=== PATIENT | male | born 1960 | race Caucasian/White ===

== ENCOUNTER 2019-05-10 10:58 | Outpatient (CLI) | payer MEDICARE, SELFPAY | END 2019-05-10 10:59 | disposition home or self-care (01) | LOC: ANHLAB 11:05 | PROVIDERS: PCP Internal Medicine; Visit Provider Internal Medicine Gastroenterology | DX: R19.7 Diarrhea, unspecified (principal) | CPT/HCPCS: 87045; 87046; 87427; 89055 ==

== ENCOUNTER 2019-05-14 07:45 | Outpatient (CLI) | payer MEDICARE, SELFPAY ==
--- NOTE | ~2019-05-14 | XR_ITS ---
XR UGIAC w small bowel DATE: 05/14/2019 09:52 INDICATION: Chronic diarrhea TECHNIQUE: Air-contrast upper gastrointestinal series. Small bowel follow-through DAP: 37.696 2.1 minutes fluoroscopy time COMPARISON: None FINDINGS: Status post sternotomy/coronary artery bypass graft surgery. Normal deglutition and esophageal peristalsis. No stricture, mucosal fold thickening, erosion, ulcera tion or intraluminal mass lesion of the esophagus, stomach or duodenum is evident. There is normal tr ansit of contrast material through the small bowel, without evidence of obstruction. No mucosal fold thickening, stricture, abnormal dilatation, ulceration, intraluminal mass lesion or diverticulum is e vident. Spot images of the terminal ileum reveal no abnormality. IMPRESSION: No significant abnormality of the esophagus, stomach or small bowel Reviewed, dictated and finalized at [facility]. Reviewed, dictated and finalized at location [facility].
== END 2019-05-14 07:46 | disposition home or self-care (01) ==
LOC: ANHIMG 07:50
PROVIDERS: PCP Internal Medicine; Visit Provider Internal Medicine Gastroenterology
DX: R19.7 Diarrhea, unspecified (principal)
CPT/HCPCS: 74246; 74248

== ENCOUNTER 2020-02-09 07:59 | Outpatient (CLI) | payer MEDICARE, SELFPAY ==
--- NOTE | ~2020-02-09 | XR_ITS ---
EXAMINATION: XR UGIAC w small bowel DATE: 02/09/2020 10:05 INDICATION: 2 years of chronic diarrhea TECHNIQUE: The patient drank thick barium, gas-producing crystals, and thin barium. Conventional supi ne abdomen radiographs and fluoroscopic spot radiographs of the esophagus, stomach, and proximal smal l bowel were obtained. Additional overhead radiographs were obtained during the transit through the s mall bowel. Spot fluoroscopic images of the small bowel were obtained upon contrast reaching the cec um. A total of 609 fluoroscopic images 5 overhead radiographs were obtained. Fluoroscopy exposure jennifer e was 1.7 minutes. COMPARISON: 05/14/2019 FINDINGS: The esophagus is normal without mass or stricture. Esophageal motility is normal. There is no hiatal hernia. There was no gastroesophageal reflux with provocative maneuvers. The stomach and proximal sma ll bowel are normal. Median sternotomy wires and mediastinal surgical clips are seen, likely from isaias or coronary artery bypass grafting. Transit time from the stomach to proximal colon was approximately 45 minutes. There is normal caliber and mucosal fold pattern throughout the small bowel. Terminal ileum is normal. No tethering or abn ormal mass effect observed upon the small bowel with real-time fluoroscopy. IMPRESSION: 1. Normal upper GI and small bowel follow-through. Reviewed, dictated and finalized at location [facility]. 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
== END 2020-02-09 08:00 | disposition home or self-care (01) ==
PROVIDERS: PCP Internal Medicine; Visit Provider Internal Medicine Gastroenterology
DX: R19.7 Diarrhea, unspecified (principal)
CPT/HCPCS: 74246; 74248

== ENCOUNTER 2020-07-13 07:35 | Outpatient (CLI) | payer MEDICARE, SELFPAY ==
--- NOTE | ~2020-07-13 | US_ITS ---
EXAMINATION: US aorta DATE: 07/13/2020 08:34 INDICATION: Abdominal aortic aneurysm TECHNIQUE: Grayscale, color Doppler, and pulsed Doppler images of the aorta and common iliac arteries were obtained. COMPARISON: None. FINDINGS: The proximal aorta measures 2.8 cm AP diameter. The mid aorta measures 2.4 cm. Fusiform infrarenal ab dominal aortic aneurysm in the distal aorta which measures 4.4 x 4.3 cm in maximal diameter before ta pering to 1.7 cm at the aortic bifurcation. The right common iliac artery measures 1.5 cm. Additional fusiform aneurysm of the left common iliac artery which measures 2.8 x 3.1 cm. IMPRESSION: 1. Fusiform infrarenal abdominal aortic aneurysm measuring up to 4.4 cm. 2. Fusiform left common iliac artery aneurysm measuring up to 3.1 cm. Reviewed, dictated and finalized at location [facility].
== END 2020-07-13 07:36 | disposition home or self-care (01) ==
PROVIDERS: PCP Internal Medicine; Visit Provider Nurse Practitioner
DX: I72.3 Aneurysm of iliac artery (principal); I71.4 Abdominal aortic aneurysm, without rupture
CPT/HCPCS: 76775

== ENCOUNTER 2020-07-19 11:43 | Emergency (ER) | payer MEDICARE, SELFPAY ==
[2020-07-19] VITALS (15 sets, daily range): BP systolic 110–138; BP diastolic 85–98; PULSE 69–98; RESP 11–22; TEMP 36.6; O2SAT 89–100
--- NOTE | ~2020-07-19 | CT_ITS ---
EXAMINATION: CT brain wo con EXAM DATE: 07/19/2020 13:19 INDICATION: Dizziness. Increasing weakness and falls. Low back pain. TECHNIQUE: Spiral CT of the head was performed without contrast. Axial, coronal and sagittal images were reviewed. The dose-length product (DLP) for this examination was 681.00 mGy-cm. The exposure w as tailored according to patient size, and iterative reconstruction (ASIR) was used as additional dos e reduction technique. Comparison is made to prior examination from 02/07/2019. FINDINGS: There is no acute intraparenchymal hemorrhage. No evidence of intraparenchymal brain mass lesion. No evidence of acute infarction. Please note that initial head CT has limited sensitivity f or small or acute infarctions. There is mild periventricular and subcortical hypodensity, nonspecific but probably related to small vessel ischemic disease. There is mild prominence of the sulci and v entricles related to cerebral atrophy. There is intracranial carotid arteriosclerosis. There are n o extra-axial collections. There is no mass effect or midline shift. The orbits are unremarkable. Soft tissue is unremarkable. The visualized sinuses and mastoid air cells are well aerated. IMPRESSION: 1. No acute intracranial findings. 2. Chronic age related findings. Reviewed, dictated and finalized at location [facility].
--- NOTE | ~2020-07-19 | XR_ITS ---
EXAMINATION: XR chest 2V DATE: 07/19/2020 12:23 INDICATION: Weakness. TECHNIQUE: Frontal and lateral views of the chest were obtained. COMPARISON: Chest 2 views 06/09/2017 FINDINGS: The chest demonstrates clear lungs without pneumonia, pleural effusion, or pneumothorax. Th e heart size is normal. Median sternotomy wires and mediastinal surgical clips are seen, likely from prior coronary artery bypass grafting. IMPRESSION: 1. No acute cardiopulmonary disease. Reviewed, dictated and finalized at location [facility].
--- NOTE | ~2020-07-19 | CT_ITS ---
EXAMINATION: CT lumbar spine wo con DATE: 07/19/2020 13:19 INDICATION: Back pain. Fall. TECHNIQUE: Computed tomography (CT) of the lumbar spine was performed without intravenous contrast. A utomated exposure control and iterative reconstruction technique were employed. The dose-length produ ct was 423.44 mGy-cm. COMPARISON: CT lumbar spine 09/19/2015, CT abdomen and pelvis 06/09/2017 FINDINGS: There is a 4.5 cm fusiform aneurysm of infrarenal aorta. There is a 3.0 cm fusiform aneurys m of left common iliac artery. There is 3 degrees dextrocurvature of lumbar spine. There is 3 mm retr olisthesis of L3 on L4 and L5 on S1. There is mild chronic anterior wedging of L1-L5 vertebral bodies . There is severely decreased disc height at L5-S1 with endplate remodeling. The following disc level s are specifically discussed: L1-L2: The disc does not extend beyond the endplate margin. There is mild bilateral facet joint osteo arthritis. There is no neural foraminal stenosis. There is no central canal stenosis. L2-L3: The disc is bulging. There is mild bilateral facet joint osteoarthritis. There is mild bilater al neural foraminal stenosis. There is mild central canal stenosis. L3-L4: The disc is bulging. There is mild bilateral facet joint osteoarthritis. There is mild bilater al neural foraminal stenosis. There is mild central canal stenosis. L4-L5: The disc is bulging. There is mild bilateral facet joint osteoarthritis. There is moderate cy ateral neural foraminal stenosis. There is mild central canal stenosis. L5-S1: The disc is bulging. There is mild bilateral facet joint osteoarthritis. There is moderate rig ht and mild left neural foraminal stenosis. There is mild central canal stenosis. IMPRESSION: 1. Severe lower lumbar spondylosis, worsened from 09/18/2005. 2. 4.5 cm fusiform aneurysm of infrarenal aorta, which measured 4.2 cm on 06/09/2017. 3. 3.0 cm fusiform aneurysm of left common iliac artery, which measured 2.7 cm on 06/09/17. Reviewed, dictated and finalized at location [facility]. IMPRESSION: 1. Severe lower lumbar spondylosis, worsened from 09/18/2005. 2. 4.5 cm fusiform aneurysm of infrarenal aorta, which measured 4.2 cm on 018. 3. 3.0 cm fusiform aneurysm of left common iliac artery, which measured 2.7 cm on 06/09/17.
--- NOTE | 2020-07-19 11:50 | ECG_ITS ---
Measurements Intervals [place] Rate: 97 P: 70 [place]: 153 QRS: -37 QRSD: 129 T: 67 QT: 377 QTc: 481 Interpretive Statements SINUS RHYTHM LEFT ATRIAL ENLARGEMENT LEFT AXIS DEVIATION TWO RIGHT BUNDLE BRANCH BLOCK QRS COMPLEXES BASELINE ARTIFACT- I, AVL ABNORMAL ECG Electronically Signed On 07-19-2020 12:35:58 CDT by oNrberto Soto D.O.
[2020-07-19 12:07] LABS: Basophils Absolute Auto 0.1 K/mm3 (0.0-0.1); Basophils Percent Auto 0.5 % (0.2-1.2); Eosinophils Absolute Auto 0.1 K/mm3 (0-0.3); Eosinophils Percent Auto 0.5 % (0-4.4); Hematocrit 41.9 % (42.0-52.0); Hemoglobin 14.1 g/dL (14.0-18.0); Immature Granulocyte Absolute 0.05 K/mm3 (0.00-0.031); Immature Granulocyte Percent A 0.5 % (0-0.5); Lymphocytes Absolute Auto 2.64 K/mm3 (0.9-3.2); Lymphocytes Percent Auto 24.8 % (18.3-44.2); Mean Corpuscular HGB Conc 33.7 g/dl (32-36); Mean Corpuscular Hemoglobin 30.7 pg (26-34); Mean Corpuscular Volume 91.3 fl (80-100); Mean Platelet Volume 9.2 fl (7.4-10.4); Monocytes Absolute Auto 0.8 K/mm3 (0.1-0.6); Monocytes Percent Auto 7.2 % (2.6-8.5); Neutrophils Absolute Auto 7.1 K/mm3 (1.3-6.7); Neutrophils Percent Auto 66.5 % (45.5-73.1); Platelet Count Result 301 k/mm3 (150-375); Red Blood Count 4.59 M/mm3 (4.6-6.20); White Blood Count 10.7 K/mm3 (4.5-10.0)
[2020-07-19 12:18] LABS: Alanine Aminotransferase 15 U/L (4-50); Albumin Level 4.3 g/dL (3.5-5.1); Alkaline Phosphatase 88 U/L (38-126); Anion Gap 9 mmol/L (8-16); Aspartate Amino Transferase 21 U/L (17-59); Bilirubin,Total 0.3 mg/dL (0.2-1.3); Blood Urea Nitrogen 14 mg/dL (9-20); Calcium 9.3 mg/dL (8.4-10.2); Carbon Dioxide 26 mmol/L (22-30); Chloride 102 mmol/L (98-107); Estimated CRCL calculation 71 ml/min; Estimated Glomerular Filt Rate > 60; Glucose 112 mg/dL (75-110); Potassium 4.3 mmol/L (3.4-5.0); Sodium 137 mmol/L (137-145)
[2020-07-19] MEDS: SODIUM CHLORIDE 0.9% IV 1,000 ML 999 ML IV CONT (13:34)
[2020-07-19 14:05] LABS: Add Urine Microscopic? NO; Appearance Urine Clear (Clear); Bilirubin Urine Negative (Negative); Blood Urine Negative (Negative); Color Urine Yellow (Yellow); Glucose Urine UA Negative (Negative); Ketones Urine Negative (Negative); Leukocyte Esterase Ur Negative LEU/UL (Negative); Nitrate Urine Negative (Negative); Protein Urine Negative (Negative); RBC Urine 0-2 /hpf (0-2); Specific Grav Ur 1.015 (1.001-1.035); Urobilinogen Urine Negative mg/dL (<2.0); WBC Urine 0-3 /hpf
--- NOTE | 2020-07-19 16:46 | ED.GENADULT ---
HPI - General Adult General Chief complaint: Fall Stated complaint: frequent falls Time Seen by Provider: 07/19/20 12:49 Source: RN notes reviewed History of Present Illness HPI narrative: Patient presents to emergency department from home for leg weakness. Patient states that he has a history of ataxia as well as chronic back pain for which he takes hydrocodone he states that for the last several days he has felt a little bit weaker in his bilateral legs he denies any unilateral weakness and denies any numbness or tingling of the legs he states he has not fallen but is felt mildly weaker he denies any fevers or chills, chest pain shortness of breath abdominal pain nausea vomiting bowel or bladder incontinence or any other symptoms Related Data Allergies Allergy/AdvReac Type Severity Reaction Status Date / Time No Known Allergies Allergy Verified 07/05/20 09:48 Review of Systems Review of Systems: Narrative: Gen.: Denies fevers or chills Eyes: Denies eye pain or visual change ENT: Denies congestion Respiratory: Denies shortness of breath or cough CV: Denies chest pain or palpitations GI: Denies abdominal pain nausea, emesis or diarrhea denies bowel or bladder incontinence Musculoskeletal: Reports chronic lower back pain Neuro: Denies numbness, tingling, weakness or focal weakness Skin: Denies rash Except as documented, all other systems reviewed and negative [facility] Past Medical History Medical History (Updated 07/19/20 @ 16:51 by Vishal Waldron DO) Anxiety Chronic bilateral back pain Chronic diarrhea COPD (chronic obstructive pulmonary disease) CVA (cerebral vascular accident) Depression Friedreich ataxia GI bleed History of bipolar disorder HLD (hyperlipidemia) HTN (hypertension) Myocardial infarction TIA (transient ischemic attack) Surgical History Surgical History H/O inguinal hernia repair Hx of CABG 2 vessel CABG Family History Family History Sibling Patient's brother is in good health Father Family history of heart disease in male family member before age 55 Patient's father is Mother Patient's mother is Other Cerebrovascular accident Depression Family history of alcoholism Family history of arthritis Family history of cardiovascular disease Family history of mental disorder Family history of migraine headaches Hypertension Social History Social History Social History: The patient tells me that he only smokes 1 pack of cigarettes a day. He denies any alcohol use. He says he lives with his brother and has no children. He is . No durable power traffic law attorney. Smoking packs per day: 2 Smoking cigarettes per day: 40.0 Years smoked: 36 Smoking pack-years: 72.00 Smoking status: Current every day smoker Tobacco type: cigarettes Alcohol intake: never Substance use: never Additional occupation/education comments: Disability Gender identity (if verbalized by the patient): Male Spiritual care concerns: No Agree to blood products: Yes Exam Narrative: Exam Narrative: APPEARANCE: No acute distress, nontoxic, resting in bed EYES: EOMI HEENT: Normocephalic, atraumatic, OMM RESPIRATORY: No respiratory distress Clear to auscultation bilaterally with no rhonchi wheezing or rales. CARDIOVASCULAR: Regular rate and rhythm without murmurs rubs or gallops. Bilateral dorsalis pedis pulse 2+ ABDOMINAL: Soft, nontender, nondistended, no rebound or guarding MUSCULOSKELETAl: Moves all extremities. No clubbing, cyanosis or edema. Back: No midline thoracic lumbar tenderness palpation mild tender palpation bilateral paravertebral muscles L3-5 NEURO: Awake and alert. Following commands, speech normal, no focal deficits muscle strength 5 out of 5 bilateral upper and l
[2020-07-19] MEDS: HYDROcodone/acetaminophen (*CRX) 5-325 MG TABLET 1 TAB PO (16:49)
== END 2020-07-19 17:40 | disposition home or self-care (01) ==
PROVIDERS: Emergency Medicine; Emergency Provider Emergency Medicine; PCP Internal Medicine
DX: M54.5 Low back pain (principal); G89.29 Other chronic pain; M62.81 Muscle weakness (generalized); F41.9 Anxiety disorder, unspecified; J44.9 Chronic obstructive pulmonary disease, unspecified; Z86.73 Personal history of transient ischemic attack (TIA), and cerebral infarction without residual deficits; E78.5 Hyperlipidemia, unspecified; I10 Essential (primary) hypertension; I25.2 Old myocardial infarction; Z95.1 Presence of aortocoronary bypass graft
CPT/HCPCS: 36415; 51701; 70450; 71046; 72131; 80053; 81003; 85025; 93005; 96360; 99284; A9270; J7030

== ENCOUNTER 2020-09-26 15:21 | Emergency (ER) | payer MEDICARE, SELFPAY ==
[2020-09-26] VITALS (10 sets, daily range): BP systolic 111–147; BP diastolic 62–92; PULSE 70–104; RESP 13–20; TEMP 37.2; O2SAT 96–98
--- NOTE | 2020-09-26 15:55 | ECG_ITS ---
Measurements Intervals [place] Rate: 102 P: 64 [place]: 147 QRS: -12 QRSD: 122 T: 73 QT: 360 QTc: 471 Interpretive Statements SINUS TACHYCARDIA VENTRICULAR COUPLET LEFT ATRIAL ENLARGEMENT EARLY PRECORDIAL R/S TRANSITION MINIMAL Q WAVES- HIGH LATERAL LEADS PEAKED T WAVES- CONSIDER HYPERKALEMIA OR ISCHEMIA ABNORMAL ECG Electronically Signed On 09-26-2020 16:08:24 CDT by Nobrerto Soto D.O.
[2020-09-26 16:38] LABS: Basophils Absolute Auto 0.1 K/mm3 (0.0-0.1); Basophils Percent Auto 0.5 % (0.2-1.2); Eosinophils Absolute Auto 0.1 K/mm3 (0-0.3); Eosinophils Percent Auto 0.5 % (0-4.4); Hemoglobin 13.4 g/dL (14.0-18.0); Immature Granulocyte Absolute 0.09 K/mm3 (0.00-0.031); Immature Granulocyte Percent A 0.7 % (0-0.5); Lymphocytes Absolute Auto 2.21 K/mm3 (0.9-3.2); Lymphocytes Percent Auto 17.6 % (18.3-44.2); Mean Corpuscular HGB Conc 33.5 g/dl (32-36); Mean Corpuscular Hemoglobin 29.7 pg (26-34); Mean Corpuscular Volume 88.7 fl (80-100); Mean Platelet Volume 9.6 fl (7.4-10.4); Monocytes Absolute Auto 1.1 K/mm3 (0.1-0.6); Monocytes Percent Auto 8.4 % (2.6-8.5); Neutrophils Absolute Auto 9.1 K/mm3 (1.3-6.7); Neutrophils Percent Auto 72.3 % (45.5-73.1); Platelet Count Result 386 k/mm3 (150-375); Red Blood Count 4.51 M/mm3 (4.6-6.20); Red Cell Distribution Width 13.7 % (11.5-14.5); White Blood Count 12.6 K/mm3 (4.5-10.0)
[2020-09-26 16:55] LABS: Alanine Aminotransferase 12 U/L (4-50); Albumin Level 4.3 g/dL (3.5-5.1); Alkaline Phosphatase 109 U/L (38-126); Anion Gap 8 mmol/L (8-16); Aspartate Amino Transferase 21 U/L (17-59); Bilirubin,Total 0.5 mg/dL (0.2-1.3); Blood Urea Nitrogen 8 mg/dL (9-20); Calcium 9.3 mg/dL (8.4-10.2); Carbon Dioxide 27 mmol/L (22-30); Chloride 99 mmol/L (98-107); Estimated CRCL calculation 79 ml/min; Estimated Glomerular Filt Rate > 60; Glucose 100 mg/dL (65-110); Lipase 64 U/L (23-300); Potassium 3.9 mmol/L (3.4-5.0); Sodium 134 mmol/L (137-145)
[2020-09-26 19:08] LABS: Add Urine Microscopic? YES; Appearance Urine Clear (Clear); Bilirubin Urine Negative (Negative); Blood Urine Negative (Negative); Color Urine Yellow (Yellow); Glucose Urine UA Negative (Negative); Ketones Urine Negative (Negative); Leukocyte Esterase Ur 2+ LEU/UL (Negative); Mucus Urine Rare /lpf; Nitrate Urine Negative (Negative); Protein Urine Negative (Negative); RBC Urine 0-2 /hpf (0-2); Specific Grav Ur 1.009 (1.001-1.035); Urobilinogen Urine Negative mg/dL (<2.0); WBC Urine 51-75 /hpf
--- NOTE | 2020-09-26 19:11 | ED.WEAKNESS ---
HPI - Weakness General Chief complaint: Weakness Stated complaint: DIZZINESS, NAUSEA [id number] Time Seen by Provider: 09/26/20 18:52 History of Present Illness HPI Narrative: 60 yo male w/ h/o anxiety presents to the ED for weakness. He reports that he has felt weak for the past week. This is associated with intermittent dizziness. He cannot further describe this. No causative factors. He also reports nausea, although he says that he has this all the time but its worse now. Additionally c/o mild intermittent inguinal pain. Now fever, syncope. Related Data Allergies Allergy/AdvReac Type Severity Reaction Status Date / Time No Known Allergies Allergy Verified 07/05/20 09:48 Review of Systems Review of Systems: All systems reviewed & are unremarkable except as noted in HPI and below Constitutional: Constitutional: Denies chills, Denies fever(s) and Reports weakness Eyes: Eyes: Reports no additional eye complaints ENT: Denies sore throat Cardiovascular: Cardiovascular: Denies chest pain Respiratory: Respiratory: Denies dyspnea Gastrointestinal: Gastrointestinal: Denies diarrhea, Reports nausea and Denies vomiting Genitourinary: Genitourinary: Denies hematuria, Denies oliguria and Reports urinary frequency Musculoskeletal: Musculoskeletal: Denies back pain Neurologic: Reports dizziness, Denies syncope, Denies focal weakness, Denies numbness and Reports weakness Psychiatric: Psychiatric: Reports anxiety and Reports depression [facility] Past Medical History Medical History (Updated 09/27/20 @ 00:00 by Background Daemon) Anxiety Chronic bilateral back pain Chronic diarrhea COPD (chronic obstructive pulmonary disease) CVA (cerebral vascular accident) Depression Friedreich ataxia GI bleed History of bipolar disorder HLD (hyperlipidemia) HTN (hypertension) Myocardial infarction TIA (transient ischemic attack) Surgical History Surgical History H/O inguinal hernia repair Hx of CABG 2 vessel CABG Family History Family History Sibling Patient's brother is in good health Father Family history of heart disease in male family member before age 55 Patient's father is Mother Patient's mother is Other Cerebrovascular accident Depression Family history of alcoholism Family history of arthritis Family history of cardiovascular disease Family history of mental disorder Family history of migraine headaches Hypertension Social History Social History Social History: The patient tells me that he only smokes 1 pack of cigarettes a day. He denies any alcohol use. He says he lives with his brother and has no children. He is . No durable power trial attorney. Smoking packs per day: 2 Smoking cigarettes per day: 40.0 Years smoked: 36 Smoking pack-years: 72.00 Smoking status: Current every day smoker Tobacco type: cigarettes Alcohol intake: never Substance use: never Additional occupation/education comments: Disability Gender identity (if verbalized by the patient): Male Spiritual care concerns: No Agree to blood products: Yes Exam Const: General: no acute distress and alert Orientation/consciousness: patient oriented x3 HENMT: Mouth: Yes dry mucous membranes Eyes: Pupils: Equal, round and reactive pupils present Neck: Neck: normal visual inspection Resp: Effort & Inspection: normal respiratory effort Auscultation: clear to auscultation bilaterally Cardio: Rate: regular rate Rhythm: regular rhythm GI: Inspection: non-distended GI Palp: Yes Soft to palpation and No Tenderness to palpation present (GI) Other: mild tenderness over left inguinal ligament Skin: General skin exam: normal color Neuro: General: patient oriented x3 and moves all extremities Sp
[2020-09-26] MEDS: ONDANSETRON INJ 4 MG/2 ML VIAL IV PUSH (20:12)
[2020-09-26] MEDS: SODIUM CHLORIDE 0.9% IV 1,000 ML 999 ML IV CONT (20:12)
== END 2020-09-26 23:00 | disposition home or self-care (01) ==
PROVIDERS: Emergency Medicine; Emergency Provider Emergency Medicine; PCP Internal Medicine
DX: N39.0 Urinary tract infection, site not specified (principal); E86.0 Dehydration; J44.9 Chronic obstructive pulmonary disease, unspecified; E78.5 Hyperlipidemia, unspecified; I10 Essential (primary) hypertension; I25.2 Old myocardial infarction; Z86.73 Personal history of transient ischemic attack (TIA), and cerebral infarction without residual deficits; Z95.1 Presence of aortocoronary bypass graft; F17.210 Nicotine dependence, cigarettes, uncomplicated; R00.0 Tachycardia, unspecified; R00.8 Other abnormalities of heart beat; R94.31 Abnormal electrocardiogram [ECG] [EKG]; F41.9 Anxiety disorder, unspecified; F32.9 Major depressive disorder, single episode, unspecified
CPT/HCPCS: 36415; 80053; 81001; 83690; 85025; 87077; 87086; 87088; 87186; 93005; 96365; 96366; 96375; 99284; J0696; J2405; J7030

== ENCOUNTER 2021-01-15 14:15 | Outpatient (CLI) | payer MEDICARE, SELFPAY ==
[2021-01-15 15:11] LABS: Alanine Aminotransferase 13 U/L (4-50); Albumin Level 4.3 g/dL (3.5-5.1); Alkaline Phosphatase 82 U/L (38-126); Anion Gap 7 mmol/L (8-16); Aspartate Amino Transferase 21 U/L (17-59); Bilirubin,Total 0.4 mg/dL (0.2-1.3); Blood Urea Nitrogen 18 mg/dL (9-20); Calcium 9.5 mg/dL (8.4-10.2); Carbon Dioxide 29 mmol/L (22-30); Chloride 101 mmol/L (98-107); Cholesterol 229 mg/dL (0-200); Estimated Glomerular Filt Rate > 60; Glucose 90 mg/dL (65-110); HDL Direct 39 mg/dL; Potassium 4.5 mmol/L (3.4-5.0); Sodium 137 mmol/L (137-145); Triglycerides 218 mg/dL (<150)
[2021-01-15 15:22] LABS: LDL Cholesterol Direct 141 mg/dL
[2021-01-15 17:06] LABS: Prostate Specific Antigen 1.5 ng/mL (< OR = 4.0)
== END 2021-01-15 14:16 | disposition home or self-care (01) ==
PROVIDERS: PCP Internal Medicine; Visit Provider Internal Medicine
DX: I10 Essential (primary) hypertension (principal); Z79.899 Other long term (current) drug therapy; E78.5 Hyperlipidemia, unspecified; Z12.5 Encounter for screening for malignant neoplasm of prostate
CPT/HCPCS: 36415; 80053; 80061; 84153; G0103

== ENCOUNTER 2021-02-08 15:09 | Outpatient (CLI) | payer MEDICARE, SELFPAY ==
--- NOTE | ~2021-02-08 | CT_ITS ---
EXAMINATION: CT abdomen wo con DATE: 02/08/2021 16:19 INDICATION: Unspecified abdominal pain TECHNIQUE: Computed tomography (CT) of the abdomen was performed without intravenous contrast. The do se-length product (DLP) was 206.97 mGy-cm. Automated exposure control and iterative reconstruction te nique were employed. COMPARISON: 06/09/2017 FINDINGS: There is mild emphysema visualized lung bases. The heart size is normal. Subendocardial fat deposition in the left ventricular apex is consistent with prior myocardial infarction. Within the l imitations of noncontrast examination, the liver, spleen, pancreas, gallbladder, and adrenal glands a re normal. There is a 2 mm nonobstructing stone of the right kidney lower pole. The left kidney is un remarkable. There is a 4.9 x 4.5 cm fusiform infrarenal abdominal aortic aneurysm which has increased in size since the comparison examination. The partially imaged left common iliac artery is aneurysma l measuring up to 2.8 cm. There are no pathologically enlarged abdominal lymph nodes. There is no claire e intraperitoneal gas or evidence of bowel obstruction. IMPRESSION: 1. No CT correlate for the patient's symptoms. 2. Enlarging infrarenal abdominal aortic aneurysm. Vascular surgical evaluation is recommended if not previously performed. 3. Nonobstructing right nephrolithiasis Reviewed, dictated and finalized at location A. 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
== END 2021-02-08 15:10 | disposition home or self-care (01) ==
LOC: ANHIMG 15:10
PROVIDERS: PCP Internal Medicine; Visit Provider Internal Medicine
DX: R10.9 Unspecified abdominal pain (principal); N20.0 Calculus of kidney; I71.4 Abdominal aortic aneurysm, without rupture
CPT/HCPCS: 74150